=== PATIENT | female | born 1975 | race Two or more races ===

== ENCOUNTER 2018-09-17 17:48 | Inpatient (IN) | payer OTHER ==
[2018-09-17] MEDS: SOD CHLORIDE 0.9% 1,000 ML IV (19:52)
[2018-09-17 20:16] LABS: TROPONIN-I < 0.012 ng/ml (0.000-0.120)
[2018-09-17] MEDS ORDERED: NACL 0.9% 3 ML SYG IV (23:30)
[2018-09-17] MEDS ORDERED: ONDANSETRON 4 MG INJ IV (23:30)
[2018-09-17] MEDS ORDERED: ACETAMINOPHEN 325 MG TAB PO (23:30)
[2018-09-18] MEDS: TETRAHYDROZOLINE 0.05% 15 ML OPH BOTH EYES ×2 (00:23→05:20)
[2018-09-18] MEDS: LOPERAMIDE 2 MG CAP PO (00:23)
[2018-09-18] MEDS: ZOLPIDEM 5 MG TAB PO (00:59)
[2018-09-18] MEDS: SOD CHLORIDE 0.9% 1,000 ML IV ×2 (05:20→15:30)
[2018-09-18] MEDS: PANTOPRAZOLE 40 MG INJ IV (05:20)
[2018-09-18] MEDS ORDERED: PANTOPRAZOLE (EC) 40 MG TAB PO (06:00)
[2018-09-18 06:54] LABS: ALANINE AMINOTRANSFERASE 32 IU/L (13-69); ALKALINE PHOSPHATASE 53 IU/L (42-121); ANION GAP 7 (5-13); ASPARTATE AMINO TRANSFERASE 24 IU/L (15-46); BILIRUBIN,INDIRECT 0.3 mg/dl (0-1.1); BILIRUBIN,TOTAL 0.3 mg/dl (0.2-1.3); BLOOD UREA NITROGEN 5 mg/dl (7-20); CALCIUM 8.4 mg/dl (8.4-10.2); CARBON DIOXIDE 23 mmol/L (21-31); CHLORIDE 111 mmol/L (97-110); CREATININE 0.51 mg/dl (0.44-1.00); Estimated GFR > 60 mL/min (>60); GLUCOSE 108 mg/dl (70-220); POTASSIUM 3.9 mmol/L (3.5-5.1); SODIUM 141 mmol/L (135-144); TOTAL PROTEIN 5.6 g/dl (6.1-8.1)
[2018-09-18 06:55] LABS: ALBUMIN/GLOBULIN RATIO 1.15; CHOL/HDL RATIO 2.3 RATIO; CHOLESTEROL 99 mg/dl (100-200); HDL CHOLESTEROL 42 mg/dl (34-88); LDL CHOLESTEROL,CALCULATED 42 mg/dl; TRIGLYCERIDES 73 mg/dl (0-149)
[2018-09-18] MEDS: ASPIRIN (EC) 81 MG TAB PO (09:07)
[2018-09-18] MEDS: LORAZEPAM 1 MG TAB PO (10:53)
== END 2018-09-18 20:25 | disposition home or self-care (01) | DRG 641 ==
LOC: 6WM 17:48
PROVIDERS: Internal Medicine
DX: E86.0 Dehydration (principal); Z72.89 Other problems related to lifestyle; F41.9 Anxiety disorder, unspecified
CPT/HCPCS: 80053; 80061; 84443; 84484; 93306; 93880